=== PATIENT | male | born 1985 | race Caucasian/White ===

== ENCOUNTER 2018-11-20 20:30 | Emergency (ER) | payer OTHER ==
[~2018-11-20] VITALS: Ht 177.8 cm; Wt 74.8 kg
[2018-11-20 20:39] VITALS: Ht 177.8 cm; Wt 74.8 kg
[2018-11-20 23:10] LABS: AMPHETAMINE QUAL UR POSITIVE (See below)
[2018-11-21 03:34] VITALS: BP 145/77
== END 2018-11-21 03:22 | disposition left against medical advice (07) ==
LOC: ED 20:30
PROVIDERS: Emergency Medicine
DX: J06.9 Acute upper respiratory infection, unspecified (principal); Z88.8 Allergy status to other drugs, medicaments and biological substances